=== PATIENT | female | born 1985 | race Two or more races ===

== ENCOUNTER → 2019-08-22 | Emergency (ER) | payer MEDICAID, OTHER ==
[~2019-08-22] VITALS: Ht 149.9 cm; Wt 80.7 kg
[2019-08-22 19:10] LABS: Basophils # (auto) 0 10 ^3/uL (0-0.2); Basophils % (auto) 0.3 % (0.0-2.0); Eosinophils # (auto) 0 10 ^3/uL (0-0.8); Eosinophils % (auto) 0.5 % (0.0-7.0); Hematocrit 41.9 % (36.0-46.0); Hemoglobin 14.1 g/dL (12.2-16.2); Lymphocytes # (auto) 2.1 10 ^3/uL (0.4-5.4); Lymphocytes % (auto) 23.3 % (10.0-50.0); Mean Corpuscular Hemoglobin 29.6 pg (28.0-32.0); Mean Corpuscular Hgb Conc. 33.6 g/dL (32.0-36.0); Mean Corpuscular Volume 88.1 fL (80.0-100.0); Monocytes # (auto) 0.6 10 ^3/uL (0-1.3); Monocytes % (auto) 6.9 % (0.0-12.0); Neutrophils # (auto) 6.2 10 ^3/uL (1.6-8.6); Platelet Count (auto) 286 10^3/uL (140-450); Red Blood Cells 4.75 10^6/uL (4.0-5.20); Red Cell Distribution Width 13.8 % (11.8-14.3); White Blood Cell 8.9 10^3/uL (4.4-10.8)
[2019-08-22 19:38] LABS: Albumin 3.7 g/dL (3.4-5.0); BUN/Creatinine Ratio 13.2; Calcium 8.2 mg/dL (8.5-10.1); Potassium 3.6 mmol/L (3.5-5.1)
[2019-08-22 19:40] LABS: Bilirubin, Total 0.4 mg/dL (0.2-1.0); Total Protein 8.1 g/dL (6.4-8.2)
[2019-08-22 21:08] VITALS: BP 124/74
== END | disposition home or self-care (01) ==
LOC: ER 18:07
DX: J02.0 Streptococcal pharyngitis (principal); J01.00 Acute maxillary sinusitis, unspecified; R05 Cough
CPT/HCPCS: 36415; 71045; 80053; 82728; 85025; 87804; 87880

== ENCOUNTER → 2019-11-04 | Emergency (ER) | payer MEDICAID ==
[~2019-11-04] VITALS: Ht 149.9 cm; Wt 80.7 kg
[~2019-11-04] MED LIST: DexAMETHasone 4 MG TAB PO ONE; DexAMETHasone SOD PHOS 4 MG/1ML SDV INJ IV ONE; ONDANSETRON ODT 4 MG TAB PO ONE
[2019-11-04 20:23] VITALS: BP 110/71
== END | disposition home or self-care (01) ==
LOC: ER 20:04
DX: R05 Cough (principal); R50.9 Fever, unspecified; R51 Headache; R11.2 Nausea with vomiting, unspecified; Z20.828 Contact with and (suspected) exposure to other viral communicable diseases
CPT/HCPCS: 71045; 87070; 87804; 87880; 99284; C9803; J8540; Q0162; U0003

== ENCOUNTER → 2023-10-13 | Outpatient (CLI) | payer OTHER ==
[2023-10-13 13:22] LABS: Hepatitis B Surface Antibody Positive (Negative)
[2023-10-13 13:34] LABS: Hepatitis B Surface Antigen Negative (Negative)
== END | disposition home or self-care (01) ==
LOC: LAB 11:13
PROVIDERS: ATTEND Family Medicine
DX: S62.90XA Unspecified fracture of unspecified hand, initial encounter for closed fracture (principal); W46.1XXA Contact with contaminated hypodermic needle, initial encounter; Y93.89 Activity, other specified; Y92.89 Other specified places as the place of occurrence of the external cause; Y99.8 Other external cause status
CPT/HCPCS: 36415; 86703; 86706; 86803; 87340